=== PATIENT | male | born 1995 | race Caucasian/White ===

== ENCOUNTER 2019-02-27 10:09 | Observation (INO) | payer OTHER, SELFPAY ==
[2019-02-27] MEDS ORDERED: Clindamycin/D5W 600 mg/50 ml Premix Bag ONE (11:23)
[2019-02-27] MEDS ORDERED: Adacel (T-DAP) 0.5 ML SYRINGE ONE (11:23)
[2019-02-27 11:51] LABS: #Eosinphils 0.1 thou/uL (0.0-0.7); #Lymphocytes 0.9 thou/uL (1.20-3.40); #Monocytes 0.6 thou/uL (0.11-0.59); %Eosinophils 0.9 % (0.0-10.0); %Lymphocytes 11.5 % (21.0-51.0); %Monocytes 8.1 % (0.0-10.0); %Neutrophils 79.5 % (42.0-75.0); Hemoglobin 15.3 g/dL (14.0-18.0); Mean Corpuscular HGB CONC 32.8 g/dL (32.0-36.0); Mean Corpuscular Hemoglobin 33.5 pg (27.0-31.0); Mean Platelet Volume 7.3 fL (7.4-10.4); Platelet Count 241 thou/uL (130-400); RBC Distribution Width 12.7 % (11.5-14.5); Red Blood Cell (RBC) Count 4.56 mill/uL (4.70-6.10); White Blood Cell (WBC) Count 7.5 thou/uL (4.8-10.8)
[2019-02-27 12:21] LABS: ALT (SGPT) 80 U/L (8-55); AST (SGOT) 87 U/L (5-34); Albumin 4.3 g/dL (3.5-5.0); Alkaline Phosphatase 84 U/L (40-150); Anion Gap 14 mmol/L (10-20); BUN (Urea Nitrogen) 12 mg/dL (8.9-20.6); Bilirubin, Total 0.7 mg/dL (0.2-1.2); Calc. Creatinine Clearance 0 mL/min (70-130); Calcium 9.9 mg/dL (7.8-10.44); Carbon Dioxide 24 mmol/L (22-29); Chloride 104 mmol/L (98-107); Estimated GFR-MDRD Greater than 90; Glucose 99 mg/dL (70-105); Potassium 3.7 mmol/L (3.5-5.1); Protein, Total 7.3 g/dL (6.0-8.3); Sodium 138 mmol/L (136-145)
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
[2019-02-27] MEDS ORDERED: Lidocaine 1% w/Epinephrine 1:100K 20 ML VIAL ONE (16:34)
[2019-02-27] MEDS ORDERED: Bupivacaine/Epinephrine 0.25% 30 ML VIAL ONE (16:34)
[2019-02-27] MEDS ORDERED: Chlorhexidine Gluconate 15 ML UDCUP SSP ONE (16:34)
[2019-02-27] MEDS ORDERED: Hydrocortisone 1% Cream 30 GM TUBE ONE (16:34)
[2019-02-27] MEDS ORDERED: Fentanyl 100 MCG/2 ML VIAL ONE ×3 (17:19→20:59)
[2019-02-27] MEDS ORDERED: HYDROmorphone 2 MG/ML VIAL ONE (17:19)
[2019-02-27] MEDS ORDERED: Oxymetazoline HCl 0.05% ( 15 ML ) ONE ×2 (17:28)
[2019-02-27] MEDS ORDERED: Clindamycin/D5W 900 mg/50 ml Premix Bag ONE (18:04)
[2019-02-27] MEDS ORDERED: Sodium Chloride 0.9% 10 ML ONE (18:04)
[2019-02-27] MEDS ORDERED: Bacitracin Zinc Ointment 30 gm TUBE ONE (19:38)
[2019-02-27] MEDS ORDERED: Ondansetron HCl/PF 4 MG/2 ML Vial IVP PRN (20:08)
[2019-02-27] MEDS ORDERED: Promethazine HCl 25 MG/ML VIAL IM PRN (20:08)
[2019-02-27] MEDS ORDERED: HYDROmorphone 2 MG/ML VIAL SLOW IVP PRN (20:08)
[2019-02-27] MEDS ORDERED: Promethazine HCl 25 MG/ML VIAL SLOW IVP PRN (20:08)
[2019-02-27] MEDS ORDERED: PACU-Morphine 4MG/ML VIAL SLOW IVP PRN (20:08)
[2019-02-27] MEDS ORDERED: Labetalol HCl 100 MG/20 ML VIAL ONE (20:58)
[2019-02-27] MEDS ORDERED: Dextrose 5% in Water 1,000 ML IV PRN (21:06)
[2019-02-27] MEDS ORDERED: hydrALAZINE 20 MG/ML VIAL SLOW IVP PRN (21:06)
[2019-02-27] MEDS ORDERED: Morphine 2 MG/ML SYRINGE SLOW IVP PRN (21:06)
[2019-02-27] MEDS ORDERED: Ondansetron PF 4 MG/2 ML Vial IVP PRN (21:06)
[2019-02-27] MEDS ORDERED: Dextrose 50% Abboject 50 ML SYRINGE SLOW IVP PRN (21:06)
[2019-02-27] MEDS ORDERED: Ondansetron ODT 4 MG TAB PO PRN (21:06)
[2019-02-27] MEDS ORDERED: Cyclobenzaprine 10 MG TAB PO PRN (21:06)
[2019-02-27] MEDS ORDERED: Acetaminophen 1,000 MG in Premix Bag 1 BAG IVPB SCH (21:15)
[2019-02-27] MEDS: Sodium Chloride 0.9% 1,000 ML IV SCH (22:00)
[2019-02-27] MEDS ORDERED: Ibuprofen 600 MG TAB PO SCH (22:00)
[2019-02-27] MEDS: Famotidine/PF 20 mg/2ml Vial SLOW IVP SCH (22:00)
[2019-02-27] MEDS: Ketorolac Tromethamine 30 MG/ML VIAL IVP SCH (22:01)
[2019-02-27 22:13] VITALS: BMI 21.9
[2019-02-27] MEDS: Acetaminophen 650 MG/20.3 ML UDCUP PO SCH (23:24)
[2019-02-27] MEDS: Clindamycin/D5W 600 MG in Premix Bag 1 BAG IVPB SCH (23:24)
[2019-02-28] MEDS: Ketorolac Tromethamine 30 MG/ML VIAL IVP SCH (03:07)
[2019-02-28] MEDS: Clindamycin/D5W 600 MG in Premix Bag 1 BAG IVPB SCH ×2 (05:38→11:01)
[2019-02-28] MEDS: Acetaminophen 650 MG/20.3 ML UDCUP PO SCH ×2 (05:38→11:01)
[2019-02-28] MEDS: Famotidine/PF 20 mg/2ml Vial SLOW IVP SCH (08:07)
[2019-02-28] MEDS: Sodium Chloride 0.9% 1,000 ML IV SCH (08:07)
[2019-02-28 08:42] VITALS: BP 115/76; TEMP 97.8
[2019-02-28] MEDS ORDERED: Ibuprofen 600 MG TAB PO SCH (14:00)
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
== END 2019-02-28 12:10 | disposition home or self-care (01) ==
LOC: ERS 10:09 → SDC 15:25 → SURG B 21:06
PROVIDERS: ADMIT Specialist; ATTEND Specialist
PROC: 0NSV04Z Reposition Left Mandible with Internal Fixation Device, Open Approach (ICD-10-PCS; principal; 2019-02-28)
DX: S02.652A Fracture of angle of left mandible, initial encounter for closed fracture (principal); G89.11 Acute pain due to trauma; F17.210 Nicotine dependence, cigarettes, uncomplicated; Z79.2 Long term (current) use of antibiotics; Z79.1 Long term (current) use of non-steroidal anti-inflammatories (NSAID); Y04.2XXA Assault by strike against or bumped into by another person, initial encounter; Y92.481 Parking lot as the place of occurrence of the external cause
CPT/HCPCS: 36415; 80053; 85025; 86850; 86900; 86901; 90471; 90715; 96361; 96365; 96366; 96375; 96376; C1713; G0378; J0131; J0360; J1170; J1885; J2001; J3010; J3490; S0028